=== PATIENT | female | born 1975 | race Caucasian/White ===

== ENCOUNTER 2024-10-07 09:31 | Outpatient (AMB) | payer OTHER, SELFPAY ==
--- NOTE | 2024-10-07 09:51 | MHC.PC.OV ---
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 Intake Note: New patient visit Jigman Required: No Allergies No Known Allergies Allergy (Verified 10/07/24 09:55) Tobacco use date assessed: 10/07/24 Dental Screening Dental Screen Date: 10/07/24 Did you have a dental visit in the last 12 months?: Yes Did you have a dental problem in the last 6 months where you did not have access to dental care?: No Was dental information given to patient?: Patient declined (lost dental insurance) HPI HPI Comments History of Present Illness Details The patient is a 49 year old female with a past medical history of anxiety, depression panic, allergic rhinitis [facility] Anxiety/depression-on venlafaxine 75mg daily Patient has been exercising decreasing calories but has been unable to lose weight. 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 HEENT: Denies changes in vision and hearing. RESPIRATORY: Denies SOB and cough. CV: Denies palpitations and CP GI: Denies abdominal pain, nausea, vomiting and diarrhea. : Denies dysuria and urinary frequency. MSK: Denies new myalgia and joint pain. SKIN: Denies rash and pruritus. NEUROLOGICAL: Denies headache PSYCHIATRIC: Denies recent changes in mood. PHYSICAL EXAM: GENERAL: Alert and oriented x 3. NAD EYES: EOMI. Anicteric. HENT: Moist mucous membranes. No scleral icterus. No cervical lymphadenopathy. LUNGS: Clear to auscultation bilaterally. CARDIOVASCULAR: Regular rate and rhythm. No murmur. No JVD. ABDOMEN: Soft, non-tender +bs EXTREMITIES: No edema. Non-tender. SKIN: No rashes or lesions. Warm. NEUROLOGIC: No focal neurological deficits. CN II-XII grossly intact PSYCHIATRIC: Cooperative. 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 1. Little interest or pleasure in doing things: not at all 2. Feeling down, depressed, or hopeless: several days 3. Trouble falling or staying asleep, or sleeping too much: several days 4. Feeling tired or having little energy: several days 5. Poor appetite or overeating: several days 6. Feeling bad about yourself - or that you are a failure or have let yourself or your family down: several days 7. Trouble concentrating on things, such as reading the newspaper or watching television: not at all 8. Moving or speaking so slowly that other people could have noticed. Or the opposite - being so fidgety or restless that you have been moving around a lot more than usual: not at all 9. Thoughts that you would be better off or of hurting yourself in some way: not at all Total score: 5 Depression Screening Interpretation: Positive Depression Screening Done: Yes 36699 - PHQ-9 Billing: Yes Source: Developed by Drs. Obdulio Cardoso, Shari Cheng, Cole Porras and colleagues, with an educational nii from [employer]. Thrive Questionnaire Date Thrive assessed: 10/07/24 I am a: Patient What is your living situation today?: I have a steady place to live Within the past 12 months, did the food you bought not last and you didn't have the money to get more?: Never true Within the past 12 months, did you worry whether your food would run out before you got money to buy more?: Never true Do you have trouble paying for medicines?: No Do you have trouble getting transportation to medical appointments?: No Do you have trouble paying your heating and electricity bill?: No Do you have trouble taking care of your child, family member or friend?: No Do you have trouble with day-to-day activities such as bathing, preparing meals, shopping, managing finances, etc.?: No Are you currently unemployed and looking for a job?: No Are you interested in more education?: No Please select the resources that you would like help with: None Currently or been in a relationship where the following occur: No concerns reported THRIVE Score: 0 AUDIT C Alcohol Use Questionnaire (AUDIT-C) 1. How often do you have a drink containing alcohol?: 4 or more times a week 2. How many drinks containing alcohol do you have on a typical day when you are drinking?: 3 or 4 3. How often do you have six or more drinks on one occasion?: Weekly Total Score: 8 STEVEN-7 AMB Questionnaire STEVEN-7 Date STEVEN - 7 assessed: 10/07/24 Feeling nervous, anxious, or on edge: 1 = Several days Not being able to stop or control worryin = Several days Worrying too much about different things: 1 = Several days Trouble relaxin = Several days Being so restless that it is hard to sit still: 1 = Several days Becoming easily annoyed or irritable: 1 = Several days Feeling afraid as if something awful might happen: 0 = Not at all Total STEVEN-7 score (0-4 normal; 5-9 mild; 10-14 moderate; 15-21 severe): 6 Source: Developed by Drs. Obdulio Cardoso, Shari Cheng, Cole Porras and colleagues, with an educational nii from [employer]. STEVEN-7 Assessment Billing STEVEN-7 Assessment Tool: STEVEN-7 Assessment 03805 Physical exam (Primary Care) Vital Signs: Last Vital Signs Temp 98.5 F 10/07/24 09:57 Pulse 102 H 10/07/24 09:57 Resp 12 10/07/24 09:57 BP 128/88 10/07/24 09:57 Pulse Ox 100 10/07/24 09:57 Oxygen Delivery Method Room Air 10/07/24 09:57 BMI result Body Mass Index 36.5 Tobacco/Smoking Status: Tobacco use Status Tobacco use date assessed 10/07/24 10/07/24 09:52 Patient Tobacco Use Status Never used Tobacco 10/07/24 10:04 e-Cigarette/Vaping Use Never Used 10/07/24 10:04 PHQ-9: PHQ-9 Score PHQ-9: Total score 5 10/09/24 16:38 Depression Screening Interpretation: Positive Thrive Assessment: Date of Thrive Assessment Date Thrive assessed 10/07/24 10/07/24 10:02 Currently or been in a relationship where the following occur: No concerns reported Coding Level of Care Code New Pt Level 4 (75828) Complex EM visit Add On G2211 Diagnoses Encounter to establish care Z76.89 Obesity (BMI 30.0-34.9) E66.811 Primary insomnia F51.01 Insomnia type: primary Additional Codes STEVEN-7 Assessment Billing - STEVEN-7 Assessment Tool: STEVEN-7 Assessment 50264 ([id number]) PHQ-9 - 41967 - PHQ-9 Billing: Yes ([id number]) Assessment & Plan Assessment & Plan (1) Encounter to establish care: Code(s): Z76.89 - Persons encountering health services in other specified circumstances (2) Obesity (BMI 30.0-34.9): Code(s): E66.811 - Obesity, class 1 Category: Medical (3) Insomnia: Code(s): G47.00 - Insomnia, unspecified Qualifiers: Insomnia type: primary Qualified Code(s): F51.01 - Primary insomnia Plan 49 year old male to establish care Depression/anxiety-on venlafaxine Obesity-on zepbound Insomnia-on trazodone Orders: Orders Complete Blood Count Auto Diff 10/07/24 R35.89 - Other polyuria, Z13.0 - Encounter for screening for diseases of the blood and blood-forming organs and certain disorders involving the immune mechanism, Z13.220 - Encounter for screening for lipoid disorders, Z13.228 - Encounter for screening for other metabolic disorders Comprehensive Met. Panel 10/07/24 R35.89 - Other polyuria, Z13.0 - Encounter for screening for diseases of the blood and blood-forming organs and certain disorders involving the immune mechanism, Z13.220 - Encounter for screening for lipoid disorders, Z13.228 - Encounter for screening for other metabolic disorders Lipid Panel 10/07/24 R35.89 - Other polyuria, Z13.0 - Encounter for screening for diseases of the blood and blood-forming organs and certain disorders involving the immune mechanism, Z13.220 - Encounter for screening for lipoid disorders, Z13.228 - Encounter for screening for other metabolic disorders Hemoglobin A1c 10/07/24 R35.89 - Other polyuria, Z13.0 - Encounter for screening for diseases of the blood and blood-forming organs and certain disorders involving the immune mechanism, Z13.220 - Encounter for screening for lipoid disorders, Z13.228 - Encounter for screening for other metabolic disorders Referrals AIR BOX TESTER Referral R35.89 - Other polyuria, Z12.4 - Encounter for screening for malignant neoplasm of cervix, Z13.0 - Encounter for screening for diseases of the blood and blood-forming organs and certain disorders involving the immune mechanism, Z13.220 - Encounter for screening for lipoid disorders, Z13.228 - Encounter for screening for other metabolic disorders Medications: New Zepbound (tirzepatide (weight loss)) for 4 weeks 2.5 mg (0.5 mL) subcut QWEEK 2 mL 0RF NS E66.811 - Obesity, class 1 venlafaxine ER 75 mg PO DAILY 90 caps 3RF trazodone 50 - 100 mg (1 - 2 x 50 mg) PO BEDTIME PRN 180 tabs 3RF sleep
[2024-10-07 09:57] VITALS: BP 128/88; PULSE 102; RESP 12; TEMP 36.9; O2SAT 100; BMI 36.5
--- OUTSIDE RECORDS SUMMARY | 2024-10-07 10:05 | XMS_ITS | Clinical Summary ---
Author Organization [facility] [address] [facility] Address [address] [place] [address] Phone Care Team Providers Care Tax Analyst Name Role Phone Yana Lovell MD Primary Care Provider [phone] Allergies Active Allergy Reactions Criticality Noted Date Comments Pollen Extracts 01/18/2008 Medications venlafaxine XR (EFFEXOR-XR) 75 mg 24 hr capsule Take 1 capsule (75 mg total) by mouth 1 (one) time each day. 4 Active LORazepam (ATIVAN) 0.5 mg tablet 1 po qd prn anxiety 1 Active sodium,potassiu m,mag sulfates (Suprep Bowel Prep Kit) 17.5-3.13-1.6 gram recon soln bowel prep kit oral solution Take 177ML by mouth for 2 doses. SEE INSTRUCTIONS PROVIDED BY OFFICE. 1 kit 5 Active sodium,potassiu m,mag sulfates (Suprep Bowel Prep Kit) 17.5-3.13-1.6 gram recon soln bowel prep kit oral solution Take 177ML by mouth for 2 doses. SEE INSTRUCTIONS PROVIDED BY OFFICE. 1 kit 5 Active Active Problems Problem Noted Date Diagnosed Date Herpes simplex 07/15/2021 Menorrhagia with regular cycle 07/15/2021 Overview (02/19/2024): Last Assessment & Plan: Discussed normal changes in menses and perimenopausal transition, however also discussed concern for endometrial hyperplasia or malignancy with increasingly heavy menstrual periods. Recommend patient return for endometrial biopsy. She is in agreement. She was asked to take Motrin prior to her procedure. All questions answered. 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 (CMS/HCC V24) 03/10/2020 Overweight (BMI 25.0-29.9) 02/20/2017 Panic disorder 06/07/2013 Chronic tension headaches 06/24/2008 Chronic diarrhea 11/20/2007 Allergic rhinitis 05/11/2006 Encounters Date Type Department Care Team Description 08/07/2024 3:57 PM EDT - 08/07/2024 11:59 PM EDT Hospital Encounter Radiology Department - [address] [id number] Encounter for screening mammogram for breast cancer Discharge Disposition: Home or Self Care from Last 3 Months Immunizations Name Administration Dates Next Due Hepatitis A Adult (Havrix; V aqta) 19yo and older 08/31/2017,01/12/2017 Influenza trivalent, 0.5mL, preservative free (Fluarix; FluLaval; Fluzone) ages 6mo and older (Afluria) 3 years and older 01/12/2017,11/27/2008 PPD Test 10/08/2001 fintonic SARS-CoV-2 COVID-19, mRNA, LNP-S, preservative free 08/13/2021,06/25/2021,07/17/2020 Tdap Tetanus diptheria acell ular pertussis (Boostrix; Adacel) 7yo and older 09/24/2021,11/20/2007 Surgical History Surgery Date Site/Laterality Comments BREAST SURGERY PROCEDURE: AR BREAST AUGMENTATION WITH IMPLANT; COMMENT: SILICONE EYE SURGERY PROCEDURE: HISTORICAL EYE SURGERY; COMMENT: lasik CERVICAL BIOPSY W/ LOOP ELECTRODE EXCISION 2003 PROCEDURE: AR CONIZATION CERVIX W/WO D&C RPR ELTRD EXC BREAST SURGERY PROCEDURE: AR UNLISTED PROCEDURE BREAST; COMMENT: implants 2005 OTHER SURGICAL HISTORY 07/2021 N/A PROCEDURE: HISTORICAL D&C; COMMENT: biopsy of uterus for abnormal uterine bleeding BREAST ENHANCEMENT SURGERY W IMPLANT Medical History Medical History Date Comments Allergic rhinitis, cause unspecified 05/11/2006 DX:Allergic rhinitis, cause unspecified Other specified personal his tory presenting hazards to health(V15.89) DX:Other specifie d personal history presenting hazards to health(V15.89); COMMENT: cathleen goode 2003 Anxiety DX:Anxiety; COMM ENT: Rx inpatient, on meds Overweight (BMI 25.0-29.9) 02/20/2017 DX:Ov erweight (BMI 25.0-29.9) Family History Medical History Relation Name Comments No Known Problems Brother 1/2 sib-ma ternal Diabetes Daughter type I, celiac disease (age 14) Hypertension Father depression Other: ovarian cancer Father's side pater nal aunt; at age 63 No Known Problems Maternal Grandfather No Known Problems Mother Breast cancer Mother's side 1 m aunt Colon cancer Mother's side 2 maternal aun t 1 also; dx < age 50 No Known Problems Paternal Grandfather Colon cancer Paternal Grandmother depress ion No Known Problems Sister 1/2 sib-pa ternal No Known Problems Son Relation Name Status Comments Brother Alive Daughter Alive Father Alive Father's side Maternal Grandfather Maternal Grandmother Alive Mother Alive Mother's side 1 m aunt Alive Mother's side 2 Paternal Grandfather Paternal Grandmother Sister Alive Son Alive Social History Tobacco Use Types Packs/Day Years Used Date Smoking Tobacco: Never Smokeless Tobacco: Never Alcohol Use Standard Drinks/Week Comments Yes 0 (1 standard drink = 0.6 oz pur e alcohol) DAILY Interpersonal Safety Answer Date Record ed Physical Abuse 06/20/2024 Verbal Abuse 06/20/2024 Comments No Sex and Gender Information Value Date Recorded Sex Assigned at Female 05/03/2024 2:34 PM EST Legal Sex Female 12:30 AM EST Gender Identity Female 05/03/2024 2:34 PM EST Sexual Orientation Straight 06/20/2024 1: 20 PM EDT Obstetrics History Para Term AB IAB SAB Ectopic Multiple Livin g Live Births 2 2 2 2 Date Outcome GA Total Labor Labor/2nd/3rd Weight Sex Type Anes PTL Rosita A1 A5 Name Clin Term Term Last Filed Vital Signs Vital Sign Reading Time Taken Comments Blood Pressure 121/88 06/20/2024 2:39 PM EDT Pulse 84 06/20/2024 2:39 PM EDT Temperature 35.8 C (96.4 F) 06/20/2024 2:00 PM EDT Respiratory Rate 15 06/20/2024 2:39 PM EDT Oxygen Saturation 100% 06/20/2024 2:39 PM EDT Inhaled Oxygen Concentration - - Weight 77.1 kg (170 lb) 06/20/2024 2:00 PM EDT Height 167.6 cm (5' 6 ) 06/20/2024 2:00 PM EDT Body Mass Index 27.44 06/20/2024 2:00 PM EDT Plan of Treatment Health Maintenance Due Date Last Done Comments Hepatitis B Vaccines (1 of 3 - 19+ 3-dose series) 1994 Hepatitis C Screening 02/26/2022 Social Influencers of Health Screening 02/26/2022 COVID-19 Vaccine ( season) 2023 08/13/2021, 07/14/2021, 06/25/2021, Additional history exists Depression Screening 03/20/2024 Influenza Vaccine (#1) 2024 01/12/2017, 2008 Breast Cancer Screening 08/07/2026 08/08/19, 07/27/2023, 07/27/2023, Additional history exists Cholesterol Screening (Lipid Panel) 09/24/2026 09/24/2021 Cervical Cancer Screening: HPV 04/18/2028 04/18/2023 DTaP,Tdap,and Td Vaccines (3 - Td or Tdap) 09/25/2031 09/24/2021, 11/20/2007 Colorectal Cancer Screening: Colonoscopy 06/20/2034 06/20/2024 HIV Screening Completed 02/28/2005 Hepatitis A Vaccines Aged Out 08/31/2017, 01/13/20 17 No longer eligible based on patient's age to complete this topic HIB Vaccines Aged Out No longer eligi ble based on patient's age to complete this topic HPV Vaccines Aged Out No longer eligi ble based on patient's age to complete this topic IPV Vaccines Aged Out No longer eligi ble based on patient's age to complete this topic MMR Vaccines Aged Out No longer eligi ble based on patient's age to complete this topic Meningococcal ACWY Vaccine Aged Out N o longer eligible based on patient's age to complete this topic Meningococcal B Vaccine Aged Out No l onger eligible based on patient's age to complete this topic Pneumococcal Vaccine: Pediatrics (0 to 5 Years) and At-Risk Patients (6 to 49 Years) Aged Out No longer eligible based on patient's age to complete this topic RSV Immunization Patients Under 20 months Aged Out No longer eligible based on patient's age to complete this topic Varicella Vaccines Aged Out No longer eligible based on patient's age to complete this topic Procedures Procedure Name Priority Date/Time Associated Diagnosis Comments MG MAMMO DIGITAL SCREENING W AAKASH BILAT Routine 08/07/2024 4:19 PM EDT Encounter for screening mammogram for breast cancer COLONOSCOPY Routine 06/20/2024 2:18 PM EDT Colon cancer screening HM HPV Routine 04/18/2023 LIPID PANEL Routine 09/24/2021 HIV SCREENING Routine 02/28/2005 from Last 3 Months or Most Recently Relevant to Health Maintenance Results * MG Mammo Digital Screening w Aakash bilat (08/07/2024 4:19 PM EDT) Anatomical Region Laterality Modality Breast Bilateral Mammography 08/08/2024 1:17 PM EDT Impressions 08/08/2024 1:21 PM EDT 1. No mammographic evidence of malignancy 2. Heterogeneous breast parenchyma BI-RADS CATEGORY: 2 - BENIGN RECOMMENDATION: Screening bilateral mammogram is recommended in 1 year. Mammo Location: [facility], [address] [place] [address], [facility], . -------- FINAL REPORT -------- Dictated By: Gabriel Ramsey Dictated Date: 08/08/2024 13:17 ET Assigned Physician: Gabriel Ramsey Reviewed and Electronically Signed By: Gabriel Ramsey Signed Date: 08/08/2024 13:21 ET Workstation ID: [id number] Transcribed By: Self Edit Transcribed Date: 08/08/2024 13:17 ET Narrative 08/08/2024 1:21 PM EDT A BILATERAL DIGITAL 3D SCREENING MAMMOGRAPHY HISTORY: Routine screening. Family history of breast cancer in aunt COMPARISON: Multiple priors dating back to 02/12/2020 Technique: Bilateral full field digital mammography (3D) was performed using standard CC and MLO projections , bilateral implant displaced views were performed CAD was used to evaluate this mammogram. FINDINGS: Right: No suspicious masses, groups of microcalcification or areas of architectural distortion identified. Stable typically benign parenchymal asymmetries. Intact implant. Left: No suspicious masses, groups of microcalcification or areas of architectural distortion identified. Stable typically benign parenchymal asymmetries. Intact implant. BREAST DENSITY: C - The breasts are heterogeneously dense which may obscure small masses. Procedure Note Gabriel Ramsey MD - 08/08/2024 A BILATERAL DIGITAL 3D SCREENING MAMMOGRAPHY HISTORY: Routine screening. Family history of breast cancer in aunt COMPARISON: Multiple priors dating back to 02/12/2020 Technique: Bilateral full field digital mammography (3D) was performedusing standard CC and MLO projections , bilateral implant displaced viewswere performed CAD was used to evaluate this mammogram. FINDINGS: Right: No suspicious masses, groups of microcalcification or areas ofarchitectural distortion identified. Stable typically benign parenchymalasymmetries. Intact implant. Left: No suspicious masses, groups of microcalcification or areas ofarchitectural distortion identified. Stable typically benign parenchymalasymmetries. Intact implant. BREAST DENSITY: C - The breasts are heterogeneously dense which mayobscure small masses. IMPRESSION: 1. No mammographic evidence of malignancy 2. Heterogeneous breast parenchyma BI-RADS CATEGORY: 2 - BENIGN RECOMMENDATION: Screening bilateral mammogram is recommended in 1 year. Mammo Location: [facility], [address] [place] [address], [id number], . -------- FINAL REPORT -------- Dictated By: Gabriel Ramsey Dictated Date: 08/08/2024 13:17 ET Assigned Physician: Gabriel Ramsey Reviewed and Electronically Signed By: Gabriel Ramsey Signed Date: 08/08/2024 13:21 ET Workstation ID: [id number] Transcribed By: Self Edit Transcribed Date: 08/08/2024 13:17 ET us Yana Lovell MD IMG BI PROCEDURES Final Result * COLONOSCOPY Anesthesia - MAC; [facility] ENDOSCOPY (06/20/2024 2:18 PM EDT) Anatomical Region Laterality Modality Endoscopy 06/20/2024 2:02 PM EDT Impressions 06/20/2024 2:18 PM EDT - The entire examined colon is normal on direct and retroflexion views. - No specimens collected. Recommendation: - Discharge patient to home. - Resume previous diet. - Continue present medications. - Repeat colonoscopy in 10 years for surveillance. - Return to GI office PRN. Narrative 06/20/2024 2:18 PM EDT [facility] GI Patient Name: Marry Doss Procedure Date: 06/20/2024 2:02 PM Date of : 1975 Age: 49 Gender: Female Note Status: Finalized Attending MD: Charli Chun MD, Procedure Date No Time: 06/20/2024 Procedure: Colonoscopy Indications: Screening for colorectal malignant neoplasm Providers: Charli Chun MD Referring MD: Charli Chun MD Medicines: Monitored Anesthesia Care Complications: No immediate complications. Estimated Blood Loss: Estimated blood loss: none. Procedure: Pre-Anesthesia Assessment: - ASA Grade Assessment: II - A patient with mild systemic disease. - After reviewing the risks and benefits, the patient was deemed in satisfactory condition to undergo the procedure. After I obtained informed consent, the scope was passed under direct vision. Throughout the procedure, the patient's blood pressure, pulse, and oxygen saturations were monitored continuously.The Colonoscope was introduced through the anus and advanced to the cecum, identified by appendiceal orifice and ileocecal valve. The colonoscopy was performed without difficulty. The patient tolerated the procedure well. The quality of the bowel preparation was good. Findings: The entire examined colon appeared normal on direct and retroflexion views. Procedure Code(s): --- Professional --- G0121, Colorectal cancer screening; colonoscopy on individual not meeting criteria for high risk Diagnosis Code(s): --- Professional --- Z12.11, Encounter for screening for malignant neoplasm of colon CPT copyright 2020 [employer]. All rights reserved. The codes documented in this report are preliminary and upon assistant professor review may be revised to meet current compliance requirements. Charli Chun MD 06/20/2024 2:18:38 PM This report has been signed electronically.Charli Chun MD Number of Addenda: 0 Note Initiated On: 06/20/2024 2:02 PM Scope In: Scope Out: Endoscopy Department at [facility] - [address] [place] [id number] Procedure Note Charli Chun MD - 06/20/2024 [facility] GI Patient Name: Marry Doss Procedure Date: 06/20/2024 2:02 PM Date of : 1975 Age: 49 Gender: Female Note Status: Finalized Attending MD: Charli Chun MD, Procedure Date No Time: 06/20/2024 Procedure: Colonoscopy Indications: Screening for colorectal malignant neoplasm Providers: Charli Chun MD Referring MD: Charli Chun MD Medicines: Monitored Anesthesia Care Complications: No immediate complications. Estimated Blood Loss: Estimated blood loss: none. Procedure: Pre-Anesthesia Assessment: - ASA Grade Assessment: II - A patient with mild systemic disease. - After reviewing the risks and benefits, thepatient was deemed in satisfactory condition to undergo the procedure. After I obtained informed consent, the scope was passed under direct vision. Throughout theprocedure, the patient's blood pressure, pulse, and oxygen saturations were monitored continuously.The Colonoscope was introduced through the anus and advanced to the cecum, identified by appendiceal orifice and ileocecal valve. The colonoscopy was performed without difficulty. The patient tolerated the procedure well. The quality of the bowel preparation was good. Findings: The entire examined colon appeared normal on direct and retroflexion views. Procedure Code(s): --- Professional --- G0121, Colorectal cancer screening; colonoscopy on individual not meeting criteria for high risk Diagnosis Code(s): --- Professional --- Z12.11, Encounter for screening for malignantneoplasm of colon CPT copyright 2020 [employer]. All rights reserved. The codes documented in this report are preliminary and upon assistant professor reviewmay be revised to meet current compliance requirements. Charli Chun MD 06/20/2024 2:18:38 PM This report has been signed electronically.Charli Chun MD Number of Addenda: 0 Note Initiated On: 06/20/2024 2:02 PM Scope In: Scope Out: Endoscopy Department at [facility] - [address] [place] [id number] IMPRESSION: - The entire examined colon is normal on direct and retroflexion views. - No specimens collected. Recommendation: - Discharge patient to home. - Resume previous diet. - Continue present medications. - Repeat colonoscopy in 10 years forsurveillance. - Return to GI office PRN. Result [facility] Charli Chun MD GI~PROCEDURE ORDERABLES Final Result * Cervical Cancer Screening: HPV (04/18/2023) [facility] Cervical Cancer Screening: HPV negative, abstracted [facility] Kris [employer] Final Result * (ABNORMAL) Lipid panel (09/24/2021) [facility] LDL/HDL Ratio 3 0 - 4 Triglycerides 85 0 - 150 mg/dL Cholesterol 205(A) 0 - 200 mg/dL HDL 70 >=40 mg/dL LDL Cholesterol 118(A) 0 - 100 mg/dL Blood Venous blood specimen / Unknown Result [facility] Eligio Ponce MD LAB BLOOD ORDERABLES Nubia l Result * HIV Screening (02/28/2005) [facility] HIV Screening Abstracted Result [facility] Kris [employer] Final Result from Last 3 Months or Most Recently Relevant to Health Maintenance Insurance [facility] Care Teams Tax Analyst Relationship Specialty Start Date End Date Yana Lovell MD [address] [place] [phone] PCP - General Internal Medicine 06/20/24
--- OUTSIDE RECORDS SUMMARY | 2024-10-07 10:05 | XMS_ITS | Clinical Summary ---
Author Organization [facility] Address [address] [place] [address] Care Team Providers Care Flying I Instructor Name Role Phone Pcp, No Primary Care Provider Unavailabl e Allergies No known active allergies Medications No known medications Social History Tobacco Use Types Packs/Day Years Used Date Smoking Tobacco: Never Assessed Comments Unknown Sex and Gender Information Value Date Recorded Sex Assigned at Not on file Legal Sex Female 6:43 PM EST Gender Identity Not on file Sexual Orientation Not on file Last Filed Vital Signs Vital Sign Reading Time Taken Comments Blood Pressure 147/94 07/30/2020 6:52 PM EDT Pulse 96 07/30/2020 6:52 PM EDT Temperature 36.7 C (98 F) 07/30/2020 6:52 PM EDT Respiratory Rate - - Oxygen Saturation 97% 07/30/2020 6:52 PM EDT Inhaled Oxygen Concentration - - Weight - - Height - - Body Mass Index - - Plan of Treatment Health Maintenance Due Date Last Done Comments Hepatitis C Virus Screening 1975 HIV Screening 02/11/1988 DTaP/Tdap/Td Vaccines (1 - Tdap) 1994 Hepatitis B Vaccines (1 of 3 - 19+ 3-dose series) 1994 Pap Smear (Ages 21-65) 02/11/1996 Mammogram 2015 Colonoscopy 02/11/2020 COVID-19 Vaccine ( - 2023-2 5 season) 2023 Influenza Vaccine 10/18/2024 Pneumococcal Vaccine: Pediat christ (0-5 Years) and At-Risk Patients (6 to 49 Years) Aged Out No longer eligible b ased on patient's age to complete this topic Insurance [employer] HMO Care Teams Flying I Instructor Relationship Specialty Start Date End Date Pcp, No PCP - General General Medicine 07/30/20
--- OUTSIDE RECORDS SUMMARY | 2024-10-07 10:05 | XMS_ITS | Clinical Summary ---
Author Organization [facility] Address [address] [place] [address] Phone Care Team Providers Care Supervisor Special Services Name Role Phone Yana Lovell MD Primary Care Provider Allergies Active Allergy Reactions Criticality Noted Date Comments Pollen Extracts 01/18/2008 Medications venlafaxine (EFFEXOR-XR) 75 MG 24 hr capsule Take by mouth daily. Active Active Problems No known active problems Social History Tobacco Use Types Packs/Day Years Used Date Smoking Tobacco: Never Assessed Education Answer Date Recorded Are you interested in more education? Not on zuleyma e 04/19/2024 Are you concerned about learning? Not on file 04/19/2024 No 04/19/2024 No 04/19/2024 Digital Access Answer Date Recorded No 04/19/2024 No 04/19/2024 Reliable internet access at home? Not on file 04/19/2024 Device with a working camera? Not on file Comments Unknown Sex and Gender Information Value Date Recorded Sex Assigned at Not on file Legal Sex Female 8:35 AM EST Gender Identity Not on file Sexual Orientation Not on file Last Filed Vital Signs Vital Sign Reading Time Taken Comments Blood Pressure 139/92 04/19/2024 10:29 AM EST Pulse 90 04/19/2024 10:29 AM EST Temperature 37.1 C (98.8 F) 04/19/2024 10:29 AM EST Respiratory Rate 18 04/19/2024 10:29 AM EST Oxygen Saturation 99% 04/19/2024 10:29 AM EST Inhaled Oxygen Concentration - - Weight - - Height - - Body Mass Index - - Plan of Treatment Health Maintenance Due Date Last Done Comments DEPRESSION SCREENING 1987 SMOKING Hx and SMOKELESS TOBACCO SCREENING 02/11/1988 HEPATITIS C SCREENING 1993 HIV ONE-TIME SCREENING (18-65 YEARS) 1993 PAP SMEAR 02/11/1996 MAMMOGRAM 2015 COLOGUARD 02/11/2020 COLONOSCOPY 02/11/2020 COLORECTAL CANCER SCREENING 02/11/2020 FIT TEST 02/11/2020 FOBT 02/11/2020 SIGMOIDOSCOPY 02/11/2020 VIRTUAL COLONOSCOPY 02/11/2020 COVID-19 VACCINE ( season) 2023 08/13/2021, 07/14/2021, 06/25/2021, Additional history exists LIPID PANEL 09/24/2026 09/24/2021 Adult Td,Tdap Booster 09/25/2031 09/24/2021, 008 HEPATITIS A VACCINES Aged Out 08/31/2017, 01/13/20 17 No longer eligible based on patient's age to complete this topic HIB VACCINES Aged Out No longer eligi ble based on patient's age to complete this topic MENINGOCOCCAL VACCINES (ACWY) Aged Out No longer eligible based on patient's age to complete this topic MENINGOCOCCAL VACCINES (B) Aged Out N o longer eligible based on patient's age to complete this topic PNEUMOCOCCAL VACCINES (0-49 years) Aged Out No longer eligible based on patient's age to complete this topic Medical Devices Not on file Insurance [place] [address] [place] [address] [place], [place] [id number] Care Teams Supervisor Special Services Relationship Specialty Start Date End Date Yana Lovell MD PCP - General Internal Medicine 04/19/24 Additional Source Comments The information contained in this document represents components of the legal health record. It is not the complete legal health record.[facility]
== END 2024-10-07 12:02 | disposition home or self-care (01) ==
LOC: HO.HMCFM 09:32
PROVIDERS: PCP Internal Medicine; Visit Provider Internal Medicine
DX: F51.01 Primary insomnia (principal); Z76.89 Persons encountering health services in other specified circumstances; E66.811 Obesity, class 1; Z68.36 Body mass index [BMI] 36.0-36.9, adult

== ENCOUNTER 2024-10-07 10:28 | Outpatient (REF) | payer OTHER, SELFPAY ==
[2024-10-07 14:04] LABS: MANUAL DIFF FLAG NO
[2024-10-07 14:16] LABS: Hematocrit 36.7 % (37.0-47.0); Hemoglobin 12.2 g/dl (12.0-16.0); Imm Gran Abs Auto 0.02 X10*3/uL (0.00-0.03); Imm Gran Pct Auto 0.3 % (0.0-0.4); Lymphocytes Absolute Auto 2.1 X10*3/uL (1.2-4.9); Mean Corpuscular HGB Conc 33.2 g/dl (31.0-35.0); Mean Corpuscular Hemoglobin 31.0 pg (27.0-33.0); Mean Corpuscular Volume 93.4 fL (80.0-98.0); NRBC Abs Auto 0.000 X10*3/uL (0.0-0.012); NRBC Pct Auto 0.0 /100WBC (0.0-0.2); Platelet Count 275 X10*3/uL (160-400); Red Blood Count 3.93 X10*6/uL (4.20-5.50); White Blood Count 7.5 X10*3/uL (4.8-10.8)
[2024-10-07 14:31] LABS: Alanine Aminotransferase 18 U/L (0-31); Albumin Level 4.4 g/dL (3.5-5.0); Alkaline Phosphatase 83 U/L (39-117); Anion Gap 11 (12-20); Aspartate Amino Transferase 19 U/L (5-31); Blood Urea Nitrogen 15 mg/dL (9-16); Calcium 8.6 mg/dL (8.4-10.2); Carbon Dioxide 25 mmol/L (22-29); Chloride 108 mmol/L (96-108); Cholesterol 216 mg/dL (<200); Estimated Glomerular Filt Rate > 60; HDL Cholesterol 78 mg/dL (>40); Potassium 4.2 mmol/L (3.3-5.1); Sodium 140 mmol/L (135-145); Total Protein 7.2 g/dL (6.5-8.0); Triglycerides 104 mg/dL (<150)
[2024-10-07 14:41] LABS: Hemoglobin A1C 136.0621 umol/L; Total Hemoglobin (HGBA1C) 3668.7448 umol/L
== END 2024-10-07 10:29 | disposition home or self-care (01) ==
LOC: HO.WFDLDS 10:28
PROVIDERS: Visit Provider Internal Medicine
DX: Z76.89 Persons encountering health services in other specified circumstances (principal); E66.811 Obesity, class 1; Z68.36 Body mass index [BMI] 36.0-36.9, adult; F51.01 Primary insomnia; R35.89 Other polyuria; F41.1 Generalized anxiety disorder; Z79.899 Other long term (current) drug therapy
CPT/HCPCS: 36415; 80053; 80061; 83036; 85025; 96127